=== PATIENT | male | born 1945 | race Caucasian/White ===

== ENCOUNTER 2017-03-20 15:06 | Emergency (ER) | payer BC, OTHER ==
[~2017-03-20] VITALS: Ht 172.7 cm; Wt 98.0 kg
[~2017-03-20 15:06] MED LIST: ALT10 PO; ASPEC81 PO; BUPRTAB51 PO; CALCTAB5 PO; CHLO50TA PO; DILT-117 PO; FLM4 PO; POTA99TA PO; PRD/1 PO; TEST1SOL TOP; [UNRECOGNIZED DRUG - CODE] INJ
[2017-03-20 15:18] VITALS: TEMP 36.9; Ht 172.7 cm; Wt 98.0 kg
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
[2017-03-20 17:14] VITALS: BP 149/84; PULSE 67; O2SAT 96
== END 2017-03-20 17:58 | disposition home or self-care (01) ==
LOC: C.EDB 15:08 → C.EDC 17:58
DX: S20.212A Contusion of left front wall of thorax, initial encounter (principal); V47.5XXA Car driver injured in collision with fixed or stationary object in traffic accident, initial encounter; Y93.89 Activity, other specified; Y99.8 Other external cause status; Y92.411 Interstate highway as the place of occurrence of the external cause; I10 Essential (primary) hypertension; Z87.891 Personal history of nicotine dependence; Z79.82 Long term (current) use of aspirin; Z79.899 Other long term (current) drug therapy